=== PATIENT | female | born 1970 | race Caucasian/White ===

== ENCOUNTER 2023-09-12 10:22 | Emergency (ER) | payer MEDICAID ==
[~2023-09-12] VITALS: Ht 170.2 cm; Wt 73.0 kg
[2023-09-12 10:24] VITALS: O2SAT 96
[2023-09-12] MEDS ORDERED: LIDO700A15 TP (12:02)
[2023-09-12] MEDS ORDERED: NAPR-1176 MT (12:02)
[2023-09-12] MEDS: KETOROLAC 15MG/ML VIAL IM ONE (12:12)
[2023-09-12 12:57] VITALS: BP 149/92; PULSE 81; RESP 18; TEMP 98.4
== END 2023-09-12 13:11 | disposition home or self-care (01) ==
LOC: ER 10:22
DX: S02.2XXA Fracture of nasal bones, initial encounter for closed fracture (principal); M25.561 Pain in right knee; M25.572 Pain in left ankle and joints of left foot; Y04.0XXA Assault by unarmed brawl or fight, initial encounter; Y93.89 Activity, other specified; Y92.89 Other specified places as the place of occurrence of the external cause; Y99.8 Other external cause status
CPT/HCPCS: 81025; 73110; 73562; 73610; 70450; 70486; 96372; 99285; J1885; Z7610